=== PATIENT | female | born 1990 | race Caucasian/White ===

== ENCOUNTER → 2024-02-09 08:51 | Outpatient (CLI) | payer OTHER, SELFPAY ==
--- NOTE | 2024-02-09 08:54 | DI.MRI.S_ITS ---
PROCEDURE: MR LUMBAR SPINE WO CON INDICATIONS: LOW BACK PAIN TECHNIQUE: Noncontrast sagittal T1 spin echo and T2 fast echo, sagittal STIR, and T2 fast spin echo through the lumbar spine. In cases with scoliosis, additional coronal T2 fast spin echo may be performed. COMPARISON: None. FINDINGS: Image quality: Excellent. Alignment and Curvature: There is trace retrolisthesis L4-L5. Bone Marrow: Marrow is of normal overall signal. No acute vertebral body compression fractures. Spinal Cord: Conus medullaris terminates at the T12-L1 level. Visualized cord demonstrates normal signal and size. Paraspinous Soft Tissues: No paravertebral masses. Discs: Mild desiccation is present L4-5, L5-S1. T12-L1: No disc bulge, spinal stenosis or foraminal narrowing. L1-L2: No disc bulge, spinal stenosis or foraminal narrowing. L2-L3: Minimal disc bulge without spinal stenosis or foraminal narrowing. Epidural lipomatosis is present. L3-L4: Minimal disc without spinal stenosis or foraminal narrowing. Mild epidural lipomatosis and facet/ligamentum flavum hypertrophy. L4-L5: Mild disc bulge with superimposed posterior central protrusion. Moderate spinal stenosis. No foraminal narrowing. Epidural lipomatosis as well as facet and ligamentum flavum hypertrophy are present. L5-S1: Mild disc bulge with minimal spinal stenosis. No foraminal narrowing. IMPRESSION: Disc bulge with superimposed protrusion at L4-5 causing moderate spinal stenosis. No foraminal narrowing. Dictated by: Berna Rodrigues M.D. on 02/09/2024 at 21:47 Approved by: Berna Rodrigues M.D. on 02/09/2024 at 21:49
== END ==
PROVIDERS: Referring Provider Internal Medicine; Visit Provider Internal Medicine
DX: M51.26 Other intervertebral disc displacement, lumbar region (principal); M51.36 Other intervertebral disc degeneration, lumbar region; M48.061 Spinal stenosis, lumbar region without neurogenic claudication; M51.37 Other intervertebral disc degeneration, lumbosacral region; M54.9 Dorsalgia, unspecified
CPT/HCPCS: 72148